=== PATIENT | female | born 1955 | race Caucasian/White ===

== ENCOUNTER 2017-12-20 17:17 | Emergency (ER) | payer OTHER ==
[~2017-12-20 17:17] MED LIST: ALPRAZOLAM0.25 M2 PO; ASPIR 8181 M1 PO; ASPIRIN EC325 MG PO; ASPIRIN325 MG PO; B COMPLETE1 EACH PO; BELBUCA300 MCG BC; BENADRYL25 MG PO; CENTRUM SILVER1 EAC3 PO; CLONIDINE HCL0.1 MG PO; CLOPIDOGREL75 MG PO; COMPAZINE10 MG PO; ECOTRIN325 MG PO; FERROUS SULFAT325 MG PO; FIORICET 50-301 EACH PO; FLONASE16 G1 BOTH NARES; HYDROCODON-ACE1 EAC9 PO; IRON325 MG PO; LISINOPRIL30 MG PO; LORATADINE10 M2 PO; LORTAB 7.5-5001 EACH PO; MEDROL DOSEPAK4 MG PO; METOPROLOL SUCC25 MG PO; MIRALAX17 GM PO; MIRALAX255 GM PO; NAPROSYN500 MG PO; NEXIUM40 MG PO; NICOTINE PATCH1 EAC1 TD; OXYCODONE HCL15 MG PO; OXYCODONE-APAP1 EACH PO; OXYCONTIN15 MG PO; OXYCONTIN30 MG PO; PERCOCET 10/1 TABLET PO; PLAVIX75 MG PO; PRAVASTATIN SOD40 MG PO; PROTONIX40 MG PO; SKELAXIN800 MG PO; SPIRIVA1 INHALATI IH; TEMAZEPAM15 MG PO; VOLTAREN 1% GE100 GM TP; XANAX1 MG PO; ZESTRIL,PRINIVI20 MG PO; ZOFRAN ODT4 MG PO
[2017-12-20 17:31] LABS: BASOPHIL (%) 1.5 % (0-1); BASOPHIL COUNT 0.1 K/uL (0-0.1); EOSINOPHIL (%) 6.2 % (0-5); EOSINOPHIL COUNT 0.4 K/uL (0-0.3); HEMATOCRIT 40.7 % (36.0-46.0); IMMATURE GRANULOCYTE (%) 0.2 % (0.0-0.7); LYMPHOCYTE (%) 44.3 % (15-42); LYMPHOCYTE COUNT 2.7 K/uL (1.0-2.8); MCH 31.3 PG (29.0-34.0); MCHC 34.4 G/DL (30.0-36.0); MCV 90.8 FL (83-99); MONOCYTE COUNT 0.4 K/uL (0-0.8); NEUTROPHIL (%) 41.8 % (45-76); NEUTROPHIL COUNT 2.6 K/uL (1.8-6.4); PLATELET COUNT 189 K/uL (156-360); RBC DIS.WIDTH-CV 12.5 % (11.8-14.6); RBC DIS.WIDTH-SD 41.4 % (39-53); RED BLOOD COUNT 4.48 M/uL (3.80-5.20); WHITE BLOOD COUNT 6.1 K/uL (4.1-10.2)
[2017-12-20 17:39] LABS: AMYLASE 33 IU/L (1-118); CHLORIDE 106 mEq/L (99-109); POTASSIUM 3.8 mEq/L (3.7-5.4); SODIUM 144 mEq/L (136-147)
[2017-12-20 17:41] LABS: GLUCOSE 103 mg/dL (70-99)
[2017-12-20 17:44] LABS: SERUM ETHYL ALCOHOL < 10 mg/dL
[2017-12-20 17:45] LABS: CREATININE 0.7 mg/dL (0.6-1.3); GFR ESTIMATE (CALCULATED) > 59 mL/min/
[2017-12-20 17:46] LABS: UREA NITROGEN (BUN) 17 mg/dL (9-23)
[2017-12-20 17:48] LABS: LIPASE 15 U/L (1.0-51.0)
[2017-12-20 18:31] LABS: APPEARANCE CLEAR ((CLEAR)); BILIRUBIN NEGATIVE; BLOOD NEGATIVE; COLOR YELLOW ((YELLOW)); GLUCOSE (STRIP) NEGATIVE; KETONES NEGATIVE; LEUKOCYTES TRACE; NITRITE NEGATIVE; PROTEIN (STRIP) NEGATIVE; SPECIFIC GRAVITY 1.023 (1.000-1.030)
[2017-12-20 18:34] LABS: AMPHETAMINE NEGATIVE (500 ng/mL); BARBITURATES NEGATIVE (200 ng/mL); BENZODIAZEPINES NEGATIVE (150 ng/mL); BUPRENORPHINE PRESUMPTIVE POSITIVE (10 ng/mL); COCAINE NEGATIVE (150 ng/mL); METHADONE NEGATIVE (200 ng/mL); METHAMPHETAMINE NEGATIVE (500 ng/mL); OPIATES (MORPHINE) NEGATIVE (100 ng/mL); OXYCODONE NEGATIVE (100 ng/mL); PHENCYCLIDINE NEGATIVE (25 ng/mL); PROPOXYPHENE NEGATIVE (300 ng/mL); THC CANNABINOIDS NEGATIVE (50 ng/mL); TRICYCLIC ANTIDEPRESSANTS NEGATIVE (300 ng/mL)
[2017-12-20 18:36] LABS: BACTERIA NONE SEEN /HPF; CALCIUM OXALATE CRYSTALS 1+ /HPF; EPITHELIAL CELLS RARE /HPF; MUCUS TRACE /LPF; RED BLOOD CELLS 0-5 /HPF (0-5); UCUL ADDED? NO; WHITE BLOOD CELLS 0-5 /HPF (0-5)
[2017-12-20] MEDS ORDERED: ROBAXIN750 MG PO (18:57)
== END 2017-12-20 19:41 | disposition home or self-care (01) ==
LOC: TRA 17:17
PROVIDERS: Emergency Medicine
DX: S16.1XXA Strain of muscle, fascia and tendon at neck level, initial encounter (principal); S06.0X0A Concussion without loss of consciousness, initial encounter; I10 Essential (primary) hypertension; V43.52XA Car driver injured in collision with other type car in traffic accident, initial encounter; Y92.411 Interstate highway as the place of occurrence of the external cause; Z95.9 Presence of cardiac and vascular implant and graft, unspecified; Z87.39 Personal history of other diseases of the musculoskeletal system and connective tissue; Z88.5 Allergy status to narcotic agent
CPT/HCPCS: 70450; 71045; 72125; 80048; 81003; 82150; 83690; 85025; 86850; 86900; 86901; 93005; 99281; 99285; G0480; J3010